=== PATIENT | male | born 1950 | race Caucasian/White ===

== ENCOUNTER 2017-11-08 14:00 | Emergency (ER) | payer OTHER ==
[~2017-11-08] VITALS: Ht 160 cm; Wt 80.9 kg
[2017-11-08 14:08] VITALS: BP 165/116
--- NOTE | 2017-11-08 14:18 | NUR ---
PT TO ER BED 11
--- NOTE | 2017-11-08 14:34 | NUR ---
DR. BOWMAN BEDSIDE
--- NOTE | 2017-11-08 14:59 | NUR ---
DISPO AND MEDICAL DECISION MAKING, DC HOME WITH INSTRUCTIONS. ADVISED TO GO SEE SURGEON WHO DID HIS SURGERY TO FOLLOW UP ON WOUND CARE AND PLAN.
[2017-11-08 15:01] VITALS: BP 155/99
== END 2017-11-08 14:59 | disposition home or self-care (01) ==
LOC: MED 14:00
DX: Z48.02 Encounter for removal of sutures (principal)
CPT/HCPCS: 99281